=== PATIENT | female | born 1980 | race African-American/Black ===

== ENCOUNTER 2016-11-04 22:18 | Emergency (ER) | payer BC, OTHER ==
[2016-11-04 22:31] VITALS: BP 108/66; PULSE 95; TEMP 98; BMI 24.4
--- NOTE | 2016-11-04 22:34 | PDOC ---
History of Present Illness - General Chief Complaint: Injury Stated Complaint: LT KNEE INJURY/YPD Time Seen by Provider: 11/04/16 22:33 History Source: Patient Exam Limitations: No Limitations - History of Present Illness Occurred: reports: just prior to arrival Pain Location: reports: none Past History - Past Medical History Allergies/Adverse Reactions: Allergies Allergy/AdvReac Type Severity Reaction Status Date / Time No Known Allergies Allergy Verified 11/04/16 22:31 Home Medications: Ambulatory Orders Pantoprazole Sodium [Protonix] 40 mg PO DAILY #30 tablet. 10/16/15 Other medical history: denies - Psycho/Social/Smoking Cessation Hx Anxiety: No Suicidal Ideation: No Smoking History: Never smoked Hx Alcohol Use: No Drug/Substance Use Hx: No Substance Use Type: None *Physical Exam - Vital Signs Last Vital Signs Temp Pulse Resp BP Pulse Ox 98 F 95 H 18 108/66 99 11/04/16 22:20 11/04/16 22:20 11/04/16 22:20 11/04/16 22:20 11/04/16 22:20 *DC/Admit/Observation/Transfer Diagnosis at time of Disposition: Left knee sprain Qualifiers: Encounter type: initial encounter Involved ligament of knee: lateral collateral ligament Qualified Code(s): S83.422A - Sprain of lateral collateral ligament of left knee, initial encounter - Discharge Dispostion Disposition: HOME Condition at time of disposition: Stable Admit: No - Referrals Referrals: Franco Vargas MD [Staff Physician] - - Patient Instructions Printed Discharge Instructions: DI for Knee Sprain Additional Instructions: Rest Ice 20 mins on alternating with 20 mins off while awake Elevate Tylenol/Motrin as needed for pain Return to the ER for severe/persistent/worsening symptoms, numbness/tingling sensation No Weight bear/Use your crutches
[2016-11-04] MEDS ORDERED: KETOROLAC TROMETHAMINE 60 MG/2 ML VIAL IM ONE (22:50)
[2016-11-04] MEDS ORDERED: KETOROLAC TROMETHAMINE 60 MG/2 ML VIAL ONE (22:51)
--- NOTE | 2016-11-05 02:20 | PDOC ---
*Physical Exam - Vital Signs Last Vital Signs Temp Pulse Resp BP Pulse Ox 98 F 95 H 18 108/66 99 11/04/16 22:20 11/04/16 22:20 11/04/16 22:20 11/04/16 22:20 11/04/16 22:20 ED Treatment Course - Medications Given in the ED: ED Medications Discontinued Medications Generic Name Dose Route Start Last Admin Trade Name Nahun PRN Reason Stop Dose Admin Ketorolac Tromethamine 60 mg 11/04/16 22:50 11/04/16 22:53 Toradol Injection - IM 11/04/16 22:51 60 mg ONCE ONE Administration *DC/Admit/Observation/Transfer Diagnosis at time of Disposition: Left knee sprain Qualifiers: Encounter type: initial encounter Involved ligament of knee: lateral collateral ligament Qualified Code(s): S83.422A - Sprain of lateral collateral ligament of left knee, initial encounter - Discharge Dispostion Disposition: HOME Condition at time of disposition: Stable - Prescriptions Prescriptions: Ibuprofen [Motrin -] 600 mg PO BID #30 tablet - Referrals Referrals: Franco Vargas MD [Staff Physician] - - Patient Instructions Printed Discharge Instructions: DI for Knee Sprain Additional Instructions: Rest Ice 20 mins on alternating with 20 mins off while awake Elevate Tylenol/Motrin as needed for pain Return to the ER for severe/persistent/worsening symptoms, numbness/tingling sensation No Weight bear/Use your crutches - Post Discharge Activity
== END 2016-11-04 23:11 | disposition home or self-care (01) ==
LOC: JER 22:18
PROC: 3E0233Z Introduction of Anti-inflammatory into Muscle, Percutaneous Approach (ICD-10-PCS; principal; 2016-11-04)
DX: S83.422A Sprain of lateral collateral ligament of left knee, initial encounter (principal); X58.XXXA Exposure to other specified factors, initial encounter; Y93.9 Activity, unspecified; Y92.9 Unspecified place or not applicable
CPT/HCPCS: 73560-TC-LT; 99283-25

== ENCOUNTER 2017-03-01 06:17 | Day surgery (SDC) | payer OTHER ==
[2017-02-20 14:44] VITALS: BMI 25.7
[2017-03-01] MEDS ORDERED: BUPIVACAINE HCL/PF 2.5 MG/ML - 30 ML VIAL IJ ONE (07:05)
[2017-03-01] MEDS ORDERED: EPINEPHrine 1:1,000 1 MG/1 ML - 30ML VIAL (INJECTION) ONE (07:05)
[2017-03-01] MEDS ORDERED: ePHEDrine SULFATE 50 MG/1 ML AMPULE ONE (07:20)
[2017-03-01] MEDS ORDERED: SUCCINYLCHOLINE CHLORIDE 200 MG/10 ML VIAL ONE (07:20)
[2017-03-01] MEDS ORDERED: MIDAZOLAM HCL 2 MG/2 ML SINGLE DOSE VIAL ONE (07:21)
[2017-03-01] MEDS ORDERED: PROPOFOL 20 ML ONE ×4 (07:21)
[2017-03-01] MEDS ORDERED: ceFAZolin SODIUM 1 GM VIAL ONE (07:49)
[2017-03-01] MEDS ORDERED: DEXAMETHASONE SOD PHOSPHATE 4 MG/1 ML VIAL ONE (07:49)
[2017-03-01] MEDS ORDERED: ONDANSETRON 4 MG/2 ML VIAL ONE (07:49)
[2017-03-01] MEDS ORDERED: KETOROLAC TROMETHAMINE 30 MG/1 ML VIAL ONE (07:49)
[2017-03-01] MEDS ORDERED: ONDANSETRON 4 MG/2 ML VIAL IVPUSH PRN (08:08)
[2017-03-01] MEDS ORDERED: oxyCODONE HCL 5 MG TABLET PO PRN ×2 (08:08)
[2017-03-01] MEDS ORDERED: LACTATED RINGERS SOLUTION 1,000 ML IV SCH (08:15)
--- NOTE | 2017-03-01 08:23 | SURG ---
Surgery Vacuum Drier Tender Note Vacuum Drier Tender: Jeannette Andino PA-C Date of Service: 03/01/17 Diagnosis: Left knee meniscus tear Procedure: Left knee arthroscopy with partial meniscectomy I was present for the entirety of the operative procedure. For further detail, please refer to operative report. Visit type - Case Type Case Type: Scheduled Admission - Emergency Emergency Visit: No - New patient This patient is new to me today: Yes Date on this admission: 03/01/17
--- NOTE | 2017-03-01 08:27 | OP ---
Operative Note - Note: Operative Date: 03/01/17 Pre-Operative Diagnosis: Left meniscus tear Operation: left knee arthorscopy with partial lateral meniscectomy Post-Operative Diagnosis: Same as Pre-op Surgeon: Gregg Singer Metal Cut Off Saw Tender: Jeannette Andino Anesthesia: General Estimated Blood Loss (mls): 10 Fluid Volume Replaced (mls): 500 Operative Report Dictated: Yes
--- NOTE | 2017-03-01 09:00 | OP ---
DATE OF OPERATION: 03/01/2017 PREOPERATIVE DIAGNOSIS: Left knee lateral meniscal tear. POSTOPERATIVE DIAGNOSIS: Left knee lateral meniscal tear. PROCEDURE: Left knee arthroscopy with partial lateral meniscectomy. SURGEON: Gregg Singer MD PEST CONTROL SUPERVISOR: PATRICK Beckham ANESTHESIA: General. POSTOPERATIVE CONDITION: Stable. INDICATIONS: This is a pleasant, 36-year-old female who has been suffering from left knee pain after a work injury. Treatment options were discussed including nonoperative versus operative management. The patient was failing to improve with nonoperative care. Given this, she was indicated for operative care. Operative risks were reviewed in detail including bleeding, infection, neurovascular injury, need for further surgery, postoperative pain and stiffness, progression of osteoarthritis. We discussed medical risks such as heart attack, stroke, DVT, PE, and . I addressed the patient's insurance. She voiced understanding and elected to proceed. DESCRIPTION OF PROCEDURE: The patient was brought to the operating room where general anesthesia was administered. The left lower extremity was then prepped and draped in the usual sterile fashion. A preoperative dose of antibiotics was given, and the usual timeout procedure was performed. At this point, the left lower extremity was examined, demonstrating full range of motion and good stability. The arthroscopic portals were marked out. They were injected subcutaneously with 0.25% Marcaine. The limb was now elevated, and tourniquet was inflated to 250 mmHg. The lateral portal was now established using an 11 blade. The arthroscope was passed into the knee. Examination of the patellofemoral joint demonstrated some mild wear in the trochlear groove. Passing the arthroscope down into the notch demonstrated intact ACL and PCL. Continuing to exam into the medial compartment, a medial portal was established under spinal needle localization. The medial compartment was examined. There was a hypoplastic meniscus consistent with previous meniscectomy. The meniscus was probed and found to be stable without any tearing. There was mild superficial cartilage wear on the articular surface of the femoral and tibial sides. The arthroscope was now passed into the lateral side. Here, a complex tear was noted at the body, extending into the posterior horn of the lateral meniscus. The tear was debrided utilizing a combination of a 4.2-mm shaver as well as a meniscal biter. This was debrided down to a stable base. At this point, the knee was examined one more time to ensure no loose debris. The excess fluid was removed from the knee. The portals were sutured using 3-0 nylon. The tourniquet was let down after 16 minutes. The patient was extubated, transferred to recovery room in stable condition. Etienne PACHECO/[id number]
[2017-03-01 09:20] VITALS: TEMP 98.5
[2017-03-01] MEDS ORDERED: oxyCODONE HCL 5 MG TABLET ONE (09:32)
[2017-03-01 10:32] VITALS: BP 110/62; PULSE 66
== END 2017-03-01 10:52 | disposition home or self-care (01) ==
LOC: FASU 06:17
PROVIDERS: ATTEND Orthopaedic Surgery Sports Medicine
PROC: 0SBD4ZZ Excision of Left Knee Joint, Percutaneous Endoscopic Approach (ICD-10-PCS; principal; 2017-03-01 07:58)
DX: S83.282A Other tear of lateral meniscus, current injury, left knee, initial encounter (principal); X58.XXXA Exposure to other specified factors, initial encounter; Y93.9 Activity, unspecified; Y92.9 Unspecified place or not applicable
CPT/HCPCS: 84703; 94760